=== PATIENT | male | born 1975 | race Caucasian/White ===

== ENCOUNTER → 2018-05-22 | Outpatient (CLI) | payer OTHER ==
[~2018-05-22] MED LIST: AMIT25TA2 OR; CLAR5CHW OR; HYDR10TA3 OR; LEXAPRO OR; TRAM50TA2 OR
== END ==
LOC: M LAB 10:45
PROVIDERS: ATTEND Internal Medicine Gastroenterology
DX: R63.4 Abnormal weight loss (principal)

== ENCOUNTER 2018-06-24 10:51 | Day surgery (SDC) | payer OTHER ==
[~2018-06-24] VITALS: Ht 180.3 cm; Wt 75.3 kg
[~2018-06-24 10:51] MED LIST changes: +LEXA1TAB2 PO; +NS 1,000 ML IV ONE; +ROPI2TAB24 PO
[2018-06-24] MEDS ORDERED: PROPOFOL 500 MG/50 ML VIAL As Ordered ONE (11:13)
[2018-06-24] MEDS ORDERED: LIDOCAINE 2% INJ 100 MG/5 ML SDV (FOR ANES.) As Ordered ONE (11:36)
--- NOTE | 2018-06-24 11:50 | ROOR ---
Patient Name: Ruben Dominguez Procedure Date: 06/24/2018 11:36 AM Date of : 1975 Age: 42 Room: [facility] Gender: Male Note Status: Finalized Procedure: Upper GI endoscopy Indications: Suspected celiac disease, Follow-up of celiac disease, Weight loss Providers: Juan TREVINO MD Referring MD: STANFORD JANSEN MD Requesting Provider: Medicines: Monitored Anesthesia Care Complications: No immediate complications. Procedure: Pre-Anesthesia Assessment: - The heart rate, respiratory rate, oxygen saturations, blood pressure, adequacy of pulmonary ventilation, and response to care were monitored throughout the procedure. The Endoscope was introduced through the mouth, and advanced to the third part of duodenum. The upper GI endoscopy was accomplished without difficulty. The patient tolerated the procedure well. Findings: The esophagus was normal. The stomach was normal. The examined duodenum was normal. Biopsies for histology were taken with a cold forceps in the second portion of the duodenum and in the third portion of the duodenum for evaluation of celiac disease. Impression: - Normal esophagus. - Normal stomach. - Normal examined duodenum. - Biopsies were taken with a cold forceps for evaluation of celiac disease. Recommendation: - Gluten free diet. - Telephone endoscopist for pathology results in 2 weeks. Juan Trevino MD Juan TREVINO MD 06/24/2018 11:50:37 AM This report has been signed electronically. Number of Addenda: 0 Note Initiated On: 06/24/2018 11:36 AM Estimated Blood Loss: Estimated blood loss: none.
--- NOTE | 2018-06-24 12:04 | ROOR ---
Patient Name: Ruben Dominguez Procedure Date: 06/24/2018 11:37 AM Date of : 1975 Age: 42 Room: [facility] Gender: Male Note Status: Finalized Procedure: Colonoscopy Indications: Change in bowel habits, Weight loss Providers: Juan TREVINO MD Referring MD: STANFORD JANSEN MD Requesting Provider: Medicines: Monitored Anesthesia Care Complications: No immediate complications. Procedure: Pre-Anesthesia Assessment: - The heart rate, respiratory rate, oxygen saturations, blood pressure, adequacy of pulmonary ventilation, and response to care were monitored throughout the procedure. The Colonoscope was introduced through the anus and advanced to 10 cm into the ileum. The colonoscopy was performed without difficulty. The patient tolerated the procedure well. The quality of the bowel preparation was good. Findings: The perianal and digital rectal examinations were normal. The entire examined colon appeared normal. The terminal ileum appeared normal. Small Internal Hemorrhoids. Biopsies for histology were taken with a cold forceps for evaluation of microscopic colitis. Impression: - Small Internal Hemorrhoids. - The entire examined colon is normal. - The examined portion of the ileum was normal. - Biopsies were taken with a cold forceps for evaluation of microscopic colitis. Recommendation: - Telephone endoscopist for pathology results in 2 weeks. - Perform a computed tomographic (CT scan) enterography as previously scheduled. Juan Trevino MD Juan TREVINO MD 06/24/2018 12:04:14 PM This report has been signed electronically. Number of Addenda: 0 Note Initiated On: 06/24/2018 11:37 AM Estimated Blood Loss: Estimated blood loss: none.
[2018-06-24 12:32] VITALS: BP 127/85
== END 2018-06-24 12:34 | disposition home or self-care (01) ==
LOC: M OPP 10:51
PROVIDERS: ATTEND Internal Medicine Gastroenterology
DX: K64.8 Other hemorrhoids (principal); R63.4 Abnormal weight loss; K90.0 Celiac disease; Z79.899 Other long term (current) drug therapy; Z91.030 Bee allergy status; J30.2 Other seasonal allergic rhinitis; Z87.891 Personal history of nicotine dependence

== ENCOUNTER 2022-10-27 10:33 | Day surgery (SDC) | payer OTHER ==
[~2022-10-27] VITALS: Ht 182.9 cm; Wt 86.8 kg
[~2022-10-27 10:33] MED LIST changes: +FOLI0.4T5 PO; +LEXA1TAB OR; -LEXAPRO OR; +NAPR220C14 PO; +OMEP1CAP71 PO
[2022-10-27] MEDS ORDERED: propofoL 200 MG/20 ML VIAL As Ordered ONE ×4 (13:06→13:24)
[2022-10-27 13:22] VITALS: TEMP 96
[2022-10-27] MEDS ORDERED: LIDOCAINE 2% 100MG/5ML SDV (FOR ANES.) As Ordered ONE (13:40)
[2022-10-27 14:00] VITALS: BP 152/98; O2SAT 97
== END 2022-10-27 14:07 | disposition home or self-care (01) ==
LOC: M OPP 10:33
PROVIDERS: ATTEND Internal Medicine Gastroenterology
DX: Z12.11 Encounter for screening for malignant neoplasm of colon (principal); D12.5 Benign neoplasm of sigmoid colon; K90.0 Celiac disease; R19.4 Change in bowel habit; R19.7 Diarrhea, unspecified; R11.2 Nausea with vomiting, unspecified; R10.9 Unspecified abdominal pain

== ENCOUNTER 2022-12-22 06:42 | Day surgery (SDC) | payer OTHER ==
[~2022-12-22] VITALS: Ht 182.9 cm; Wt 86.2 kg
[2022-12-22] MEDS ORDERED: propofoL 200 MG/20 ML VIAL As Ordered ONE ×2 (07:34→07:43)
[2022-12-22] MEDS ORDERED: LIDOCAINE 2% 100MG/5ML SDV (FOR ANES.) As Ordered ONE (07:34)
[2022-12-22] MEDS ORDERED: GLYCOPYRROLATE INJ 0.2 MG/ML 2 ML VIAL As Ordered ONE (07:34)
[2022-12-22 08:17] VITALS: BP 130/70; O2SAT 100
== END 2022-12-22 08:18 | disposition home or self-care (01) ==
LOC: M OPP 06:42
PROVIDERS: ATTEND Internal Medicine Gastroenterology
DX: R19.4 Change in bowel habit (principal); K64.8 Other hemorrhoids

== ENCOUNTER 2023-05-25 16:40 | Emergency (ER) | payer OTHER ==
[~2023-05-25] VITALS: Ht 182.9 cm; Wt 87.6 kg
[~2023-05-25 16:40] MED LIST changes: -NS 1,000 ML IV ONE
[2023-05-25] MEDS ORDERED: ROPI1TAB73 (16:54)
[2023-05-25 18:50] LABS: BASO # 0.1 10^3/uL (0.0-0.2); BASO % 0.4 % (0.0-1.0); EOS % 0.2 % (0.0-3.0); HEMATOCRIT 44.7 % (42.0-52.0); HEMOGLOBIN 15.7 g/dl (13.5-17.5); LYMPH # 1.8 10^3/uL (1.5-5.0); LYMPH % 13.8 % (24.0-44.0); MEAN CORPUSCULAR HGB CONC 35.1 g/dl (32.0-36.5); MEAN CORPUSCULAR VOLUME 96.8 fl (80.0-96.0); MONO # 1.2 10^3/uL (0.0-0.8); MONO % 9.4 % (2.0-8.0); NEUTROPHILS # 9.8 10^3/uL (1.5-8.5); NEUTROPHILS % 75.8 % (36.0-66.0); PLATELET COUNT, AUTOMATED 324 10^3/uL (150-450); RED BLOOD COUNT 4.62 10^6/uL (4.30-6.10); WHITE BLOOD COUNT 12.9 10^3/uL (4.0-10.0)
[2023-05-25 19:17] LABS: LIPASE 38 U/L (12-53); RSV AMPLIFICATION NEGATIVE (NEGATIVE)
[2023-05-25 19:19] LABS: ALBUMIN 4.5 G/DL (3.2-5.2); ALKALINE PHOSPHATASE 98 U/L (46-116); ALT/SGPT 27 U/L (7.0-40); AST/SGOT 22 U/L (<34); BILIRUBIN,DIRECT 0.3 MG/DL (<0.4); BILIRUBIN,TOTAL 1.1 MG/DL (0.3-1.2); BLOOD UREA NITROGEN 19 MG/DL (9-23); CALCIUM LEVEL 10.4 MG/DL (8.5-10.1); CARBON DIOXIDE LEVEL 20 MMOL/L (20-31); CHLORIDE LEVEL 104 MMOL/L (98-107); CREATININE FOR GFR 1.05 MG/DL (0.70-1.30); GLOMERULAR FILTRATION RATE > 60.0 (>60); GLUCOSE, FASTING 137 MG/DL (60-100); POTASSIUM SERUM 3.7 MMOL/L (3.5-5.1); SODIUM LEVEL 137 MMOL/L (136-145); TOTAL PROTEIN 8.2 G/DL (5.7-8.2)
[2023-05-25] MEDS: ONDANSETRON 4MG 2ML VIAL IV ONE (20:08)
[2023-05-25] MEDS: NS 1,000 ML IV ONE (20:08)
[2023-05-25] MEDS ORDERED: BACTRIM 160MG/800MG DS TAB PO ONE (23:10)
[2023-05-25] MEDS ORDERED: ONDA4TAB6 PO (23:12)
[2023-05-25] MEDS ORDERED: BACT800T5 PO (23:12)
[2023-05-25] MEDS ORDERED: CEFD1CAP9 PO (23:15)
[2023-05-25 23:20] VITALS: BP 164/74; TEMP 98.9; O2SAT 100
[2023-05-25] MEDS: CEFDINIR 300 MG CAP (OMNICEF) PO ONE (23:35)
[2023-05-26 00:24] LABS: CHLAMYDIA DNA AMPLIFICATION NEGATIVE (NEGATIVE); GC DNA AMPLIFICATION NEGATIVE (NEGATIVE)
[2023-05-26] MEDS ORDERED: METR-265 PO (08:26)
== END 2023-05-25 23:38 | disposition home or self-care (01) ==
LOC: M ED 20:58
DX: N39.0 Urinary tract infection, site not specified (principal); R11.10 Vomiting, unspecified; F10.10 Alcohol abuse, uncomplicated; Z91.030 Bee allergy status; Z91.048 Other nonmedicinal substance allergy status; Z79.2 Long term (current) use of antibiotics; Z79.83 Long term (current) use of bisphosphonates; Z79.899 Other long term (current) drug therapy
CPT/HCPCS: 74018; 80048; 80076; 81001; 83690; 85025; 87086; 87631; 87661; 87810; 87850; 93005; 96361; 96374; 99284; J2405

== ENCOUNTER 2023-07-06 07:18 | Emergency (ER) | payer OTHER ==
[~2023-07-06] VITALS: Ht 182.9 cm; Wt 97.4 kg
[~2023-07-06 07:18] MED LIST changes: +BACT800T5 PO; +CEFD1CAP9 PO; +METR-265 PO; +ONDA4TAB6 PO; +ROPI1TAB73
[2023-07-06 09:43] VITALS: BP 140/95; TEMP 98.4; O2SAT 98
[2023-07-06] MEDS ORDERED: KETO10TAB PO (09:50)
[2023-07-06] MEDS: ACETAMINOPHEN TAB 650MG DOSE (2X325MG) PO ONE (10:11)
[2023-07-06] MEDS: KETOROLAC 30 MG/ML 1ML VIAL IM ONE (10:12)
== END 2023-07-06 10:20 | disposition home or self-care (01) ==
LOC: M ED 07:18
DX: S43.402A Unspecified sprain of left shoulder joint, initial encounter (principal); W10.8XXA Fall (on) (from) other stairs and steps, initial encounter; F17.200 Nicotine dependence, unspecified, uncomplicated; Y92.009 Unspecified place in unspecified non-institutional (private) residence as the place of occurrence of the external cause; Y93.89 Activity, other specified; Y99.9 Unspecified external cause status; Z91.030 Bee allergy status; Z91.048 Other nonmedicinal substance allergy status; Z91.02 Food additives allergy status; Z79.83 Long term (current) use of bisphosphonates; Z79.899 Other long term (current) drug therapy
CPT/HCPCS: 73030; 96372; 99284; J1885

== ENCOUNTER → 2023-08-16 | Outpatient (CLI) | payer OTHER ==
[~2023-08-16] MED LIST changes: +KETO10TAB PO
[2023-08-16 09:56] LABS: BASO # 0.1 10^3/uL (0.0-0.2); BASO % 1.3 % (0.0-1.0); EOS # 0.2 10^3/uL (0.0-0.5); EOS % 3.4 % (0.0-3.0); HEMATOCRIT 40.8 % (42.0-52.0); HEMOGLOBIN 13.9 g/dl (13.5-17.5); LYMPH # 1.5 10^3/uL (1.5-5.0); LYMPH % 26.7 % (24.0-44.0); MEAN CORPUSCULAR HEMOGLOBIN 34.5 pg (27.0-33.0); MEAN CORPUSCULAR HGB CONC 34.1 g/dl (32.0-36.5); MEAN CORPUSCULAR VOLUME 101.2 fl (80.0-96.0); MONO # 0.6 10^3/uL (0.0-0.8); MONO % 10.9 % (2.0-8.0); NEUTROPHILS # 3.2 10^3/uL (1.5-8.5); NEUTROPHILS % 57.2 % (36.0-66.0); PLATELET COUNT, AUTOMATED 320 10^3/uL (150-450); RED BLOOD COUNT 4.03 10^6/uL (4.30-6.10); WHITE BLOOD COUNT 5.6 10^3/uL (4.0-10.0)
[2023-08-16 10:06] LABS: APPEARANCE, URINE HAZY (CLEAR); BACTERIA, URINE AUTO NEGATIVE (NEGATIVE); BILIRUBIN, URINE AUTO NEGATIVE (NEGATIVE); BLOOD, URINE BLOOD NEGATIVE (NEGATIVE); CALCIUM OXALATE CRYSTALS SMALL; COLOR, URINE YELLOW (YELLOW); GLUCOSE, URINE (UA) AUTO NEGATIVE (NEGATIVE); KETONE, URINE AUTO NEGATIVE (NEGATIVE); LEUKOCYTE ESTERASE, URINE AUTO NEGATIVE (NEGATIVE); MUCUS, URINE SMALL (NEGATIVE); NITRITE, URINE AUTO NEGATIVE (NEGATIVE); PROTEIN, URINE AUTO NEGATIVE (NEGATIVE); RBC, URINE AUTO 1 /HPF (0-3); SPECIFIC GRAVITY URINE AUTO 1.024 (1.002-1.035); SQUAMOUS EPITHELIAL CELL UR AU 0 /HPF (0-6); UROBILINOGEN, URINE AUTO 0.2 mg/dL (0.0-2.0); WBC, URINE AUTO 1 /HPF (0-3)
[2023-08-16 10:24] LABS: THYROID STIMULATING HORMONE 1.724 uIU/ML (0.55-4.78)
[2023-08-16 10:25] LABS: FREE T4 1.11 NG/DL (0.89-1.76)
[2023-08-16 10:27] LABS: ALBUMIN 3.4 G/DL (3.2-5.2); ALKALINE PHOSPHATASE 100 U/L (46-116); ALT/SGPT 37 U/L (7.0-40); AST/SGOT 22 U/L (<34); BILIRUBIN,TOTAL 0.6 MG/DL (0.3-1.2); BLOOD UREA NITROGEN 14 MG/DL (9-23); CALCIUM LEVEL 9.3 MG/DL (8.5-10.1); CARBON DIOXIDE LEVEL 27 MMOL/L (20-31); CHLORIDE LEVEL 107 MMOL/L (98-107); CHOLESTEROL LEVEL 209 MG/DL (<200); CHOLESTEROL RISK RATIO 3.59 (<5); CREATININE FOR GFR 0.77 MG/DL (0.70-1.30); GLOMERULAR FILTRATION RATE > 60.0 (>60); GLUCOSE, FASTING 102 MG/DL (60-100); HDL CHOLESTEROL 58.2 MG/DL (>40); LDL CHOLESTEROL 81.2 MG/DL (<100); NON-HDL-C 150.8 MG/DL; POTASSIUM SERUM 4.1 MMOL/L (3.5-5.1); SODIUM LEVEL 141 MMOL/L (136-145); TOTAL PROTEIN 6.8 G/DL (5.7-8.2); TRIGLYCERIDES LEVEL 348 MG/DL (<150)
== END ==
LOC: M LAB 08:23
PROVIDERS: ATTEND Family Medicine
DX: F41.1 Generalized anxiety disorder (principal); E61.2 Magnesium deficiency; D52.0 Dietary folate deficiency anemia; K90.0 Celiac disease

== ENCOUNTER 2023-08-30 16:44 | Observation (INO) | payer OTHER ==
[~2023-08-30] VITALS: Ht 175.3 cm; Wt 92.4 kg
[2023-08-30 17:46] LABS: HEMATOCRIT 45.3 % (42.0-52.0); HEMOGLOBIN 16.1 g/dl (13.5-17.5); MEAN CORPUSCULAR HEMOGLOBIN 34.8 pg (27.0-33.0); MEAN CORPUSCULAR HGB CONC 35.5 g/dl (32.0-36.5); MEAN CORPUSCULAR VOLUME 98.1 fl (80.0-96.0); PLATELET COUNT, AUTOMATED 386 10^3/uL (150-450); RED BLOOD COUNT 4.62 10^6/uL (4.30-6.10); WHITE BLOOD COUNT 13.5 10^3/uL (4.0-10.0)
[2023-08-30 18:05] LABS: ALBUMIN 4.6 G/DL (3.2-5.2); ALKALINE PHOSPHATASE 131 U/L (46-116); ALT/SGPT 42 U/L (7.0-40); AST/SGOT 32 U/L (<34); BILIRUBIN,TOTAL 0.6 MG/DL (0.3-1.2); BLOOD UREA NITROGEN 13 MG/DL (9-23); CALCIUM LEVEL 11.3 MG/DL (8.5-10.1); CARBON DIOXIDE LEVEL 19 MMOL/L (20-31); CHLORIDE LEVEL 110 MMOL/L (98-107); CREATININE FOR GFR 1.23 MG/DL (0.70-1.30); GLOMERULAR FILTRATION RATE > 60.0 (>60); GLUCOSE, FASTING 176 MG/DL (60-100); POTASSIUM SERUM 4.3 MMOL/L (3.5-5.1); SODIUM LEVEL 143 MMOL/L (136-145); TOTAL PROTEIN 8.1 G/DL (5.7-8.2)
[2023-08-30] MEDS: PIPERACILLIN/TAZOBACTAM SOD 4.5 GM in D5W MINI-BAG PLUS 50 ML IV ONE (18:30)
[2023-08-30] MEDS: NS 1,000 ML IV ONE (18:34)
[2023-08-30] MEDS: NS IV ONE (18:36)
[2023-08-30] MEDS ORDERED: ISOVUE-370 76% 100ML VIAL As Ordered ONE (18:39)
[2023-08-30 18:43] LABS: C REACTIVE PROTEIN QUANTITATIV < 0.40 MG/DL (<1.0)
[2023-08-30 18:51] LABS: ERYTHROCYTE SEDIMENTATION RATE 26 mm/hr (0-15)
[2023-08-30] MEDS: ONDANSETRON 4MG 2ML VIAL IV ONE (18:51)
[2023-08-30 19:41] LABS: LIPASE 31 U/L (12-53)
[2023-08-30 19:43] LABS: CPK CREATINE PHOSPHOKINASE 98 U/L (46-171)
[2023-08-30 19:56] LABS: APPEARANCE, URINE HAZY (CLEAR); BACTERIA, URINE AUTO NEGATIVE (NEGATIVE); BILIRUBIN, URINE AUTO NEGATIVE (NEGATIVE); BLOOD, URINE BLOOD NEGATIVE (NEGATIVE); COLOR, URINE YELLOW (YELLOW); GLUCOSE, URINE (UA) AUTO NEGATIVE (NEGATIVE); KETONE, URINE AUTO NEGATIVE (NEGATIVE); LEUKOCYTE ESTERASE, URINE AUTO NEGATIVE (NEGATIVE); MUCUS, URINE SMALL (NEGATIVE); NITRITE, URINE AUTO NEGATIVE (NEGATIVE); PROTEIN, URINE AUTO 2+ mg/dL (NEGATIVE); RBC, URINE AUTO 0 /HPF (0-3); SQUAMOUS EPITHELIAL CELL UR AU 0 /HPF (0-6); UROBILINOGEN, URINE AUTO 0.2 mg/dL (0.0-2.0); WBC, URINE AUTO 0 /HPF (0-3)
[2023-08-30 20:04] LABS: SPECIFIC GRAVITY URINE AUTO >1.060 (1.002-1.035)
[2023-08-30] MEDS: HALOPERIDOL LACTATE 5MG/ML VIAL IV ONE (20:26)
[2023-08-30 21:50] LABS: PROCALCITONIN <0.04 ng/ml
[2023-08-30 21:54] LABS: ATYPICAL LYMPH 3 % (0-5); BASOPHILS 1 % (0-1); EOSINOPHILS 1 % (0-3); LYMPHOCYTES 9 % (16-44); MONOCYTES 8 % (0-5); NEUTROPHILS 78 % (28-66)
[2023-08-30 21:56] LABS: PLATELET ESTIMATE NORMAL (NORMAL)
[2023-08-30] MEDS: NICOTINE 21MG/24HR 1 EA TRANSDERMAL TD ONE (22:00)
[2023-08-30] MEDS ORDERED: OMEP-173 PO (22:06)
[2023-08-30] MEDS ORDERED: ROPI1TAB73 PO (22:06)
[2023-08-30] MEDS ORDERED: HOME MED LIST COMPLETE! XX SCH (22:10)
[2023-08-30 22:30] VITALS: BP 158/94; TEMP 97.5; O2SAT 97
[2023-08-30] MEDS ORDERED: ACETAMINOPHEN TAB 650MG DOSE (2X325MG) PO PRN (23:25)
[2023-08-31] MEDS: rOPINIRole 1MG TAB PO SCH (01:54)
[2023-08-31] MEDS: ESCITALOPRAM OXALATE 10 MG TAB (LEXAPRO) PO SCH (01:54)
[2023-08-31] MEDS: OMEPRAZOLE 20MG CAP PO SCH (01:55)
[2023-08-31] MEDS: amLODIPine 5 MG TAB PO ONE (01:56)
[2023-08-31] MEDS: ONDANSETRON 4MG 2ML VIAL IV PRN (01:56)
[2023-08-31] MEDS: LR 1,000 ML IV SCH (02:57)
[2023-08-31 05:10] VITALS: BP 137/87; TEMP 97.5; O2SAT 97
[2023-08-31 08:04] LABS: BASO # 0.1 10^3/uL (0.0-0.2); BASO % 0.3 % (0.0-1.0); HEMATOCRIT 38.4 % (42.0-52.0); LYMPH # 1.6 10^3/uL (1.5-5.0); LYMPH % 10.8 % (24.0-44.0); MEAN CORPUSCULAR HEMOGLOBIN 34.3 pg (27.0-33.0); MEAN CORPUSCULAR HGB CONC 34.4 g/dl (32.0-36.5); MEAN CORPUSCULAR VOLUME 99.7 fl (80.0-96.0); MONO # 1.2 10^3/uL (0.0-0.8); MONO % 8.1 % (2.0-8.0); NEUTROPHILS # 11.6 10^3/uL (1.5-8.5); NEUTROPHILS % 79.9 % (36.0-66.0); PLATELET COUNT, AUTOMATED 312 10^3/uL (150-450); RED BLOOD COUNT 3.85 10^6/uL (4.30-6.10); WHITE BLOOD COUNT 14.5 10^3/uL (4.0-10.0)
[2023-08-31 08:15] LABS: ACETONE/KETONE 0.13 MMOL/L (0.02-0.27)
[2023-08-31 08:16] LABS: HEMOGLOBIN 13.2 g/dl (13.5-17.5)
[2023-08-31 08:22] LABS: ALBUMIN 3.6 G/DL (3.2-5.2); BILIRUBIN,DIRECT 0.1 MG/DL (<0.4); BILIRUBIN,TOTAL 0.4 MG/DL (0.3-1.2); BLOOD UREA NITROGEN 11 MG/DL (9-23); CALCIUM LEVEL 9.5 MG/DL (8.5-10.1); CARBON DIOXIDE LEVEL 24 MMOL/L (20-31); CHLORIDE LEVEL 109 MMOL/L (98-107); CREATININE FOR GFR 0.86 MG/DL (0.70-1.30); GLOMERULAR FILTRATION RATE > 60.0 (>60); GLUCOSE, FASTING 119 MG/DL (60-100); POTASSIUM SERUM 4.2 MMOL/L (3.5-5.1); SODIUM LEVEL 142 MMOL/L (136-145); TOTAL PROTEIN 6.7 G/DL (5.7-8.2)
[2023-08-31] MEDS: ENOXAPARIN 40MG/0.4ML SYRINGE (J1650 PER 10MG) SC SCH (08:31)
[2023-08-31] MEDS: SCOPOLAMINE 1MG TRANSDERMAL PATCH TOP SCH (08:31)
[2023-08-31 12:54] VITALS: BP 190/96
[2023-08-31] MEDS ORDERED: AMLO1TAB25 PO (13:57)
[2023-08-31] MEDS ORDERED: TRAN1DIS4 TOP (13:57)
[2023-08-31] MEDS ORDERED: ONDA4TAB6 PO (13:57)
[2023-08-31 13:58] VITALS: BP 186/92
[2023-08-31 14:00] VITALS: TEMP 98.8; O2SAT 95
[2023-08-31] MEDS ORDERED: AMLO1TAB24 PO (14:00)
== END 2023-08-31 15:00 | disposition home or self-care (01) ==
LOC: EDBD 16:44 → M ED 16:44 → EDSEX 16:44 → M ED INP 21:33 → M MS5PR 23:27
PROVIDERS: ADMIT Internal Medicine; ATTEND Student in an Organized Health Care Education/Training Program
DX: F12.188 Cannabis abuse with other cannabis-induced disorder (principal); E87.21 Acute metabolic acidosis; N17.9 Acute kidney failure, unspecified; D72.829 Elevated white blood cell count, unspecified; Z79.899 Other long term (current) drug therapy; Z91.030 Bee allergy status; J30.2 Other seasonal allergic rhinitis
CPT/HCPCS: 36415; 74177; 80048; 80053; 80076; 81001; 82010; 82550; 83605; 83690; 84145; 85007; 85025; 85027; 85652; 86140; 87040; 87086; 93005; 96365; 96372; 96375; 96376; 99285; J1630; J1650; J2405; J2543; Q9967

== ENCOUNTER 2023-12-11 09:08 | Emergency (ER) | payer OTHER ==
[~2023-12-11] VITALS: Ht 182.9 cm; Wt 89.2 kg
[~2023-12-11 09:08] MED LIST changes: +AMLO1TAB24 PO; +AMLO1TAB25 PO; +OMEP-173 PO; +ONDA-282 PO; -ONDA4TAB6 PO; +ROPI1TAB73 PO; +TRAN1DIS4 TOP
[2023-12-11 09:55] LABS: BASO # 0.1 10^3/uL (0.0-0.2); BASO % 0.9 % (0.0-1.0); EOS # 0.1 10^3/uL (0.0-0.5); EOS % 1.1 % (0.0-3.0); HEMATOCRIT 45.9 % (42.0-52.0); HEMOGLOBIN 15.8 g/dl (13.5-17.5); LYMPH # 1.6 10^3/uL (1.5-5.0); LYMPH % 18.4 % (24.0-44.0); MEAN CORPUSCULAR HEMOGLOBIN 34.9 pg (27.0-33.0); MEAN CORPUSCULAR HGB CONC 34.4 g/dl (32.0-36.5); MEAN CORPUSCULAR VOLUME 101.3 fl (80.0-96.0); MONO # 0.8 10^3/uL (0.0-0.8); MONO % 9.2 % (2.0-8.0); NEUTROPHILS # 6.2 10^3/uL (1.5-8.5); NEUTROPHILS % 69.8 % (36.0-66.0); PLATELET COUNT, AUTOMATED 366 10^3/uL (150-450); RED BLOOD COUNT 4.53 10^6/uL (4.30-6.10); WHITE BLOOD COUNT 8.9 10^3/uL (4.0-10.0)
[2023-12-11 10:07] LABS: ALBUMIN 4.9 G/DL (3.2-5.2); BILIRUBIN,DIRECT 0.2 MG/DL (<0.4); TOTAL PROTEIN 8.6 G/DL (5.7-8.2)
[2023-12-11] MEDS: METOCLOPRAMIDE INJ 10MG/2ML VIAL IV ONE (10:12)
[2023-12-11] MEDS: NS 1,000 ML IV ONE (10:13)
[2023-12-11] MEDS: PROMETHAZINE 25MG/ML 1ML VIAL IV ONE (11:08)
[2023-12-11 12:30] VITALS: BP 168/86; TEMP 97.2; O2SAT 96
== END 2023-12-11 12:33 | disposition home or self-care (01) ==
LOC: M ED 09:08
DX: R11.10 Vomiting, unspecified (principal); I10 Essential (primary) hypertension; F12.10 Cannabis abuse, uncomplicated; F10.10 Alcohol abuse, uncomplicated; Z91.030 Bee allergy status; Z91.048 Other nonmedicinal substance allergy status; Z79.83 Long term (current) use of bisphosphonates; Z79.899 Other long term (current) drug therapy
CPT/HCPCS: 80047; 80076; 83690; 85025; 96361; 96374; 96375; 99284; J2550; J2765

== ENCOUNTER 2024-05-23 10:31 | Emergency (ER) | payer OTHER ==
[~2024-05-23] VITALS: Ht 182.9 cm; Wt 83.0 kg
[2024-05-23] MEDS ORDERED: LOSA25TA13 (10:42)
[2024-05-23] MEDS ORDERED: OMEP40CA5 (10:42)
[2024-05-23 11:42] LABS: BASO # 0.1 10^3/uL (0.0-0.2); BASO % 0.5 % (0.0-1.0); EOS % 0.2 % (0.0-3.0); HEMATOCRIT 47.5 % (42.0-52.0); LYMPH # 1.6 10^3/uL (1.5-5.0); LYMPH % 16.7 % (24.0-44.0); MEAN CORPUSCULAR HEMOGLOBIN 35.1 pg (27.0-33.0); MEAN CORPUSCULAR HGB CONC 35.8 g/dl (32.0-36.5); MEAN CORPUSCULAR VOLUME 98.1 fl (80.0-96.0); MONO # 0.9 10^3/uL (0.0-0.8); MONO % 9.4 % (2.0-8.0); NEUTROPHILS # 6.9 10^3/uL (1.5-8.5); NEUTROPHILS % 72.7 % (36.0-66.0); PLATELET COUNT, AUTOMATED 424 10^3/uL (150-450); RED BLOOD COUNT 4.84 10^6/uL (4.30-6.10); WHITE BLOOD COUNT 9.5 10^3/uL (4.0-10.0)
[2024-05-23 12:11] LABS: ALBUMIN 4.9 G/DL (3.2-5.2); BILIRUBIN,DIRECT 0.3 MG/DL (<0.4); TOTAL PROTEIN 8.4 G/DL (5.7-8.2)
[2024-05-23] MEDS: PROMETHAZINE 25MG/ML 1ML VIAL IV ONE (12:33)
[2024-05-23] MEDS: NS (Normal Saline) 0.9% 1,000 ML IV ONE (12:33)
[2024-05-23] MEDS ORDERED: ISOVUE-370 76% 100ML VIAL As Ordered ONE (13:29)
[2024-05-23] MEDS: METOCLOPRAMIDE INJ 10MG/2ML VIAL IV ONE (14:38)
[2024-05-23] MEDS: HALOPERIDOL LACTATE 5MG/ML VIAL IV ONE (16:03)
[2024-05-23 18:18] VITALS: BP 168/92; TEMP 98.4; O2SAT 98
== END 2024-05-23 18:20 | disposition home or self-care (01) ==
LOC: M ED 10:31
DX: F12.188 Cannabis abuse with other cannabis-induced disorder (principal); R91.1 Solitary pulmonary nodule; K21.9 Gastro-esophageal reflux disease without esophagitis; I10 Essential (primary) hypertension; F32.A Depression, unspecified; F17.200 Nicotine dependence, unspecified, uncomplicated; Z91.030 Bee allergy status; Z91.09 Other allergy status, other than to drugs and biological substances; Z91.02 Food additives allergy status; Z79.83 Long term (current) use of bisphosphonates; Z79.899 Other long term (current) drug therapy
CPT/HCPCS: 74018; 74177; 80047; 80076; 83690; 85025; 96361; 96374; 96375; 99284; J1630; J2550; J2765; Q9967

== ENCOUNTER 2025-03-19 20:10 | Emergency (ER) | payer OTHER ==
[~2025-03-19] VITALS: Ht 182.9 cm; Wt 86.1 kg
[~2025-03-19 20:10] MED LIST changes: -FOLI0.4T5 PO; +FOLI400T2 PO; +LOSA25TA13; +OMEP40CA5
[2025-03-19] MEDS: IBUPROFEN 600 MG TAB PO ONE (20:43)
[2025-03-19] MEDS ORDERED: IBUP600T42 PO (21:07)
[2025-03-19 21:17] VITALS: BP 138/66; TEMP 97.2; O2SAT 98
== END 2025-03-19 21:19 | disposition home or self-care (01) ==
LOC: M ED 20:10
DX: S20.211A Contusion of right front wall of thorax, initial encounter (principal); W00.0XXA Fall on same level due to ice and snow, initial encounter; I10 Essential (primary) hypertension; F17.200 Nicotine dependence, unspecified, uncomplicated; Y92.008 Other place in unspecified non-institutional (private) residence as the place of occurrence of the external cause; Y93.H1 Activity, digging, shoveling and raking; Y99.9 Unspecified external cause status